=== PATIENT | male | born 1980 | race Caucasian/White ===

== ENCOUNTER → 2018-06-18 | Outpatient (CLI) | payer OTHER ==
--- NOTE | 2018-06-19 03:28 | US ---
EXAMINATION TYPE: US scrotum with doppler. TECHNIQUE: Grayscale and color Doppler Duplex imaging performed of the scrotum. DATE OF EXAM: 06/18/2018 COMPARISON: NONE CLINICAL HISTORY: 37-year-old male N45.1 EPIDIDYMITIS. Bilateral pain. Findings: EXAM MEASUREMENTS: TESTICLES: Right Testicle: 4.2 x 2.9 x 2.5 cm Left Testicle: 3.9 x 3.2 x 2.4 cm EPIDIDYMIS HEAD: Right Epididymis: .9 x .8 x .9 cm Left Epididymis: .8 x .8 x .9 cm Doppler performed to assess for testicular vascularity; good bilateral color flow and waveforms are s een. There is no evidence of testicular torsion. Presence of hydroceles: Trace on the left. Presence of varicoceles: No IMPRESSION: 1. Trace left-sided hydrocele. 2. No sonographic evidence for testicular torsion or epididymoorchitis.
== END | disposition home or self-care (01) ==
LOC: RADUSWWP 15:35
PROVIDERS: ATTEND Family Medicine
DX: N43.3 Hydrocele, unspecified (principal)
CPT/HCPCS: 76870

== ENCOUNTER → 2018-07-27 | Outpatient (CLI) | payer OTHER ==
--- NOTE | 2018-07-27 09:28 | MR ---
MR lumbar spine wo con Intervertebral disc disorders, lumbar Multiplanar, multiecho imaging of the lumbar spine was obtained without contrast on a 3 Val magnet. REFERENCE:None. FINDINGS: Paraspinal soft tissues are normal. There is minimal retrograde listhesis of L4 and L5. Vertebral body height and alignment otherwise anette ntained. Cord signal is maintained. The conus ends normally at the level of the mid body of L1. At T12-L1, no definite abnormality is seen. At L1-2, there is mild disc space loss and disc desiccation. Intervertebral foramina are well maintai patrizia. There is no significant compressive discopathy. There is mild facet arthropathy. At L2-3, there is a bilobed disc displacement. Intervertebral foramina are well maintained. There is mild facet arthropathy. At L3-4, is mild disc space loss and disc desiccation. The intervertebral foramina are well maintaine d. There is no significant compressive discopathy. There is capsulitis and hypertrophic change in the facets. At L4-5, There is a broad-based disc protrusion slightly eccentric towards the left. There is a small annular rent on the left. There is bilateral intervertebral foraminal narrowing. There is hypertroph ic change in the facets. There is mild to moderate trefoiling of the thecal sac. At L5-S1, the intervertebral foramina are well maintained. There is no significant compressive discop athy. There is mild facet arthropathy. IMPRESSION: 1. DIFFUSE DEGENERATIVE DISC DISEASE AND FACET ARTHROPATHY. 2. BROAD-BASED DISC PROTRUSION, L4-5 SITE ECCENTRIC TOWARDS THE LEFT WITH AN ASSOCIATED ANNULAR RENT AND MILD TO MODERATE CENTRAL CANAL STENOSIS. THIS IS ALSO ASSOCIATED WITH BILATERAL INTERVERTEBRAL FO RAMINAL NARROWING.
== END | disposition home or self-care (01) ==
LOC: RADMRIMAIN 08:41
PROVIDERS: ATTEND Family Medicine
DX: M48.061 Spinal stenosis, lumbar region without neurogenic claudication (principal); M99.71 Connective tissue and disc stenosis of intervertebral foramina of cervical region; M51.26 Other intervertebral disc displacement, lumbar region; M51.36 Other intervertebral disc degeneration, lumbar region; M46.96 Unspecified inflammatory spondylopathy, lumbar region
CPT/HCPCS: 72148

== ENCOUNTER → 2018-08-30 | Outpatient (CLI) | payer OTHER ==
--- NOTE | 2018-08-30 15:34 | CT ---
EXAMINATION TYPE: CT lumbar spine wo con DATE OF EXAM: 08/30/2018 2:28 PM COMPARISON: MRI of the lumbar spine dated 07/27/2018 HISTORY: Intervertebral disc degeneration CT DLP: 975 mGycm Automated exposure control for dose reduction was used. TECHNIQUE: Unenhanced CT of the lumbar spine was performed. Bone and soft tissue window settings are submitted as well as coronal and sagittal reconstructions. FINDINGS: There is a minimal retrolisthesis of L4 on L5 and mild grade 1 anterolisthesis of L5 on S1. Old fracture deformity of the L5 spinous process is seen. Vertebral body heights are maintained. Bailee morl's node formation of the superior aspect of S1 is present. No acute fracture is seen. There are bilateral nonobstructing renal calculi seen measuring 2 to 3 mm, 3 on the left and 4 on the right. Appendix is incidentally partially visualized and within normal limits of size. Paraspinal mu scles are unremarkable. L1-L2: Normal disc space height. No disc herniation protrusion or central stenosis. No facet joint arthropathy. No evidence for foraminal encroachment. L2-L3: There is a small broad-based disc bulge and mild facet arthropathy without neural foraminal na rrowing or spinal canal stenosis. L3-L4: There is a small broad-based disc bulge and mild facet arthropathy with very minimal neural fo raminal narrowing and without spinal canal stenosis. L4-L5: There is a left eccentric disc bulge and facet arthropathy creating severe left neural foramin al narrowing and moderate right neural foraminal narrowing. Mild spinal canal stenosis is also seen a s a result of ligamentum flavum buckling, facet arthropathy and the disc bulge. L5-S1: There is disc uncovering seen without significant neural foraminal narrowing or spinal canal s tenosis. Mild facet arthropathy is present. IMPRESSION: 1. Grade 1 anterolisthesis of L5 on S1 and minimal retrolisthesis of L4 on L5. 2. No vertebral body height loss. 3. Degenerative disc disease from L2 through S1 most pronounced at L4-L5 with degenerative changes cr eating severe left neural foraminal narrowing, moderate right neural foraminal narrowing and mild spi nal canal stenosis. 4. Bilateral nonobstructing renal calculi.
== END | disposition home or self-care (01) ==
LOC: RADCTMAIN 11:42
PROVIDERS: ATTEND Neurological Surgery
DX: M48.061 Spinal stenosis, lumbar region without neurogenic claudication (principal); M51.36 Other intervertebral disc degeneration, lumbar region; M51.37 Other intervertebral disc degeneration, lumbosacral region; M43.17 Spondylolisthesis, lumbosacral region; M43.16 Spondylolisthesis, lumbar region; M47.816 Spondylosis without myelopathy or radiculopathy, lumbar region
CPT/HCPCS: 72131